=== PATIENT | male | born 1965 | race Caucasian/White ===

== ENCOUNTER 2018-09-15 07:21 | Outpatient (CLI) | payer BC, SELFPAY ==
[2018-09-15 07:47] LABS: HCT 45.9 % (40.0-50.0); HGB 15.3 g/dL (13.5-17.5); Mean Corp. HGB Concentration 33.3 g/dL (32.0-36.0); Mean Corpuscular Hemoglobin 29.4 pg (27.0-33.0); Mean Corpuscular Volume 88.3 fL (80-95); Platelet Count 265 x1000/uL (130-400); RBC Distribution Width 13.3 % (11.8-14.1); White Blood Cell Count 5.59 k/cumm (4.4-10.8)
[2018-09-15 08:51] LABS: ALT 27 U/L (12-78); AST 18 U/L (15-37); Albumin 3.6 g/dL (3.4-5.0); Alkaline Phosphatase 66 U/L (46-116); Anion Gap 9.7 mmol/L (3-11); BUN 20 mg/dL (7-18); Bilirubin, Total 0.4 mg/dL (0.2-1.0); C-Reactive Protein 0.14 mg/dL (0.0-0.3); CO2 27.3 mmol/L (21.0-32.0); CREATININE 1.25 mg/dL (0.70-1.30); Calcium 8.9 mg/dL (8.5-10.1); Chloride 105 mmol/L (98-107); Glucose 107 mg/dL (70-100); Potassium 4.6 mmol/L (3.5-5.1); Sodium 142 mmol/L (136-145); TSH 1.32 uIU/mL (0.358-3.74); Total Protein 6.6 g/dL (6.4-8.2)
[2018-09-16 10:21] LABS: PSA, Screening 1.2 ng/ml (0-3.5)
== END 2018-09-15 07:41 ==
PROVIDERS: PCP Emergency Medicine; Visit Provider Emergency Medicine
DX: E03.9 Hypothyroidism, unspecified (principal); F32.9 Major depressive disorder, single episode, unspecified; Z12.5 Encounter for screening for malignant neoplasm of prostate
CPT/HCPCS: 36415; 80053; 84153; 85027; 84443; 86140

== ENCOUNTER 2018-12-09 12:12 | Outpatient (CLI) | payer BC, SELFPAY ==
--- NOTE | 2018-12-09 19:08 | W.PREOPHP ---
Date of service: 12/09/18 Assessment and Plan (1) Dupuytren's contracture of left hand: Current visit: Yes Status: Chronic Partial palmar fasciectomy left hand. Details of surgery were discussed with patient as well as risks and pertinent anatomy. All questions were answered. History of Present Illness Chief Complaint: Flexion contracture of his left ring finger Narrative: Rosendo a 52-year-old male who comes in today for preop visit of the Dupuytren's contracture of his left hand. He has a flexion contracture of his left ring finger that has been slowly developing over the last several years. He has noticed also a cord with nodules developing in the palm of his hand. The fingers started to get into his way when he is trying to put his hand in his pocket, and also is affecting his bowling. Because the contracture is actually developed to the point where he is unable to fully extend his finger to the tabletop with his dorsum of his hand on the table, Dr. Cordon does suggest a nodular palmar fasciectomy which the patient agrees to and is anxious to proceed with. Pertinent Surgical Information Patient denies history of hypertension, CVA, [place], angina, asthma, COPD, renal or liver disorders, hepatitis, bleeding disorders, diabetes, immune or thyroid disorders. No complications from anesthesia. Review of Systems Constitutional Denies fever(s) ENT Denies dizziness and Denies sore throat Cardiovascular Denies chest pain, Denies palpitations and Denies dyspnea Respiratory Denies cough and Denies dyspnea Gastrointestinal Denies abdominal pain, Denies melena, Denies hematochezia, Denies diarrhea, Denies nausea and Denies vomiting Genitourinary Denies hematuria and Denies dysuria Neurologic Denies dizziness Endocrine Denies palpitations PFSH Medical History BPH associated with nocturia (Chronic) Kidney stone (Chronic) Depression (Chronic) Family history of heart disease (Chronic) Surgical History H/O wisdom tooth extraction (Chronic) Social History Smoking/Tobacco Use Status: Former Tobacco Use Drug use: Never Do you feel safe at home: Yes Do you feel safe in your relationship?: Yes Meds Home Medications Medication Instructions Recorded Confirmed Type ibuprofen 200 mg tablet 200 - 300 mg PO QID PRN tab 09/23/18 12/09/18 History bupropion HCl XL 150 mg 24 hr 150 mg PO QAM #60 tab 10/29/18 12/09/18 Rx tablet, extended release Allergies Allergy/AdvReac Type Severity Reaction Status Date / Time No Known Allergies Allergy Unverified 12/09/18 11:52 Exam HENIN Head: normocephalic and atraumatic General nose exam: no nasal discharge Throat: uvula midline and no uvular edema Other: soft palate rises symmetrically, no erythema Eyes Conjunctivae: conjunctivae normal Sclera: sclerae normal Pupils: PERRL Resp Effort & Inspection: normal respiratory effort Auscultation: clear to auscultation bilaterally and no wheezes Cardio Rate: regular rate Rhythm: regular rhythm Heart Sounds: S1 normal, S2 normal and no murmurs GI Palpation: soft, no hepatosplenomegaly and nontender Auscultation: normal bowel sounds
== END 2018-12-09 12:32 ==
PROVIDERS: PCP Emergency Medicine; Visit Provider Orthopaedic Surgery
DX: M72.0 Palmar fascial fibromatosis [Dupuytren] (principal); Z01.818 Encounter for other preprocedural examination
CPT/HCPCS: NC

== ENCOUNTER 2018-12-15 11:18 | Day surgery (SDC) | payer BC, SELFPAY ==
[2018-12-09 12:26] VITALS: BP 131/81; PULSE 86; RESP 18; TEMP 36.6; O2SAT 96
[2018-12-15 11:35] VITALS: BP 121/91; PULSE 78; RESP 16; TEMP 36.5; O2SAT 97
[2018-12-15] MEDS: Lactated Ringers 1,000 ML 80 ML IV (12:24)
[2018-12-15] MEDS: ceFAZolin 1 GM/50 ML BAG IVPB (12:40)
--- NOTE | 2018-12-15 13:53 | PDOC.DSDIS_ITS ---
Discharge Plan Disposition Patient Disposition: HOME Condition: Good Discharge Details Reason For Visit: Partial palmar fasciectomy L Attending Provider: Saqib Cordon Primary Care Provider: Charly Tyson Home Meds and New Rx's Prescriptions: New hydrocodone-acetaminophen 5-325 mg tablet 1 tab PO Q6H PRN (Reason: pain) Qty: 7 RF: 0 Continued ibuprofen 200 mg tablet 200 - 300 mg PO QID PRNRF: 0 polyethylene glycol 3350 17 gram/dose powder 238 g PO ONCE Qty: 238 RF: 0 bisacodyl [Dulcolax (bisacodyl)] 5 mg tablet,delayed release (DR/EC) 5 mg PO ONCE Qty: 4 RF: 0 bupropion HCl 150 mg tablet extended release 24 hr 150 mg PO QAM Qty: 60 RF: 6 Discharge Instructions Additional Instructions: Elevate L hand above heart level as much as possible for next 48 hours. Keep dressings intact and dry until return. Return to 's office in one week. Bend and straighten fingers L hand 10 times/hour when awake to prevent swelling. Take tylenol or advil for mild pain. Take hydrocodone, if needed, for breakthru pain. Stand Alone Forms: DSU Post op Instructions, Mariusz Shin (DSU) Referrals: Saqib Cordon MD [ [facility] STAFF PHYSICIAN] - (f/u in one week.) Activity:: Activity as Tolerated Remove Dressings/Wound Care:: Do Not Remove Shower/Bathe:: Cover Diet:: As Tolerated Discharge Orders Discharge Orders: Discharge Order (Routine); Ordered 12/15/18 Ordered By: Saqib Cordon DS: Diagnosis Discharge Diagnosis (1) Dupuytren's contracture of left hand: Status: Chronic
[2018-12-15] MEDS: Ketorolac 15 MG/ML VIAL IVP (14:16)
[2018-12-15] MEDS: Normal Saline Flush 10 ML SYR IV (14:17)
[2018-12-15 14:20] VITALS: BP 121/91; PULSE 78; RESP 16; TEMP 36.5; O2SAT 97
--- NOTE | 2018-12-16 08:58 | ROE_ITS ---
REPORT OF OPERATIVE PROCEDURE DATE OF SERVICE December 15, 2018 PREOPERATIVE DIAGNOSIS Nodular palmar fascitis left. POSTOPERATIVE DIAGNOSIS Nodular palmar fascitis left. PROCEDURE Partial palmar fasciectomy left. ANESTHESIA IV regional, Jessee Cabrera CRNA SURGEON Saqib Cordon M.D. INDICATIONS This is a 53-year-old white male who has nodular palmar fascitis on the left. He has reached the in t where he has developed a 30-degree contracture of the MP joint of his left ring finger. He has a ve ry firm single cord starting at the distal edge of the volar carpal ligament and extending just acros s the MP joint of the ring finger. Because of the flexion contracture that has developed, partial pal mar fasciectomy was recommended at this time before the contracture has extended to the PIP joint. E xcision of the palmar fascia would be simpler and with less complications. The patient wished to proc eed as soon as possible. The risks and complications to the procedure were explained to the patient in detail preoperatively. PROCEDURE The patient was taken to the Operating Room on 12/15/2018. He was placed supine on the Operating Tabl e. An IV regional anesthetic was administered to the left upper extremity. The left hand, wrist and forearm were prepped and draped free in the usual sterile fashion. A disposable lead hand was then a pplied to keep the fingers extended during the procedure. A zigzag Ellen-type incision was made beg inning approximately mid proximal phalanx of the left ring finger and carried across the flexion crea ses to the distal edge of the volar carpal ligament. Sharp dissection was used to create skin flaps a nd expose the diseased palmar fascia. I then started proximally incising the palmar fascia. Traction was applied to the end of the palmar fascia and dissection proceeded from proximal to distal in the p qasim. I identified the digital nerves on either side of the ring finger metacarpal, carefully preserve d and protected these nerves as the dissection carried distally across the proximal flexion crease of the finger. The diseased palmar fascia was excised in one piece. I then released the proximal ulises of the ring finger. I was able to excise the diseased palmar fascia without perforating the skin. Th e wound was irrigated with saline solution. The wound margins were infiltrated with 0.5% Marcaine wit h epinephrine solution and the skin edges were then loosely approximated with interrupted #4-0 Nylon sutures. The wound was dressed with Xeroform gauze, fluff gauze, 4x4s between the fingers and the pal m, an ABD pad and wrapped with a 4-inch cling bandage. I then wrapped it with an Jacek bandage. I did n ot use a splint. The patient's IV regional anesthesia was reversed without complications. He was dis charged to the Recovery Room in good condition. The patient was discharged home from the Day Surgery Unit when fully recovered from his IV regional a nesthesia. He was given instructions to try to elevate his left hand above heart level as much as po ssible for the next 24 hours. He was encouraged to flex and extend the fingers of his left hand 10 t imes an hour while awake to prevent swelling. He is to keep the dressings dry and intact until he fol lows up in my office in one week for a dressing change. He will take Tylenol or ibuprofen for mild pa in. He is given a prescription for breakthrough pain of hydrocodone with APAP 5/325, 1 tablet every 6 hours as needed.
== END 2018-12-15 14:42 | disposition home or self-care (01) ==
PROVIDERS: PCP Emergency Medicine; Visit Provider Orthopaedic Surgery
PROC: (CPT 26123; principal; 2018-12-15 13:00)
DX: M72.0 Palmar fascial fibromatosis [Dupuytren] (principal)
CPT/HCPCS: 26123; J0690; J1885; J2250

== ENCOUNTER 2018-12-27 12:00 | Day surgery (SDC) | payer BC, SELFPAY ==
--- NOTE | 2018-12-27 07:12 | W.COLOREPORT ---
Date of service: 12/27/18 Time of Service: 13:44 Colonoscopy Report Date of procedure: 12/27/18 Pre-op diagnosis general: Colon Cancer screening Post-op diagnosis procedure note: other (Ascending colon polyp) Procedure: Colonoscopy with polypectomy by cold snare Surgeon: Aleah Pagan Anesthesia proc note operative: other (General/ ASA 2/Eladio Elliott, JOANN) Estimated blood loss (mL): 3 Pathology: other (Ascending colon polyp) Complications: None Disposition: same day Indications: Mr. Monet is a pleasant 53-year-old gentleman who was seen in the office for his first screening colonoscopy. There is no family history of colon cancer. Risks, benefits and complications have been reviewed. Complications include but are not limited to bleeding, pain, perforation, missed small lesion/polyp, sore throat, aspiration and adverse reaction to the medications. Questions were entertained and answered to their satisfaction and they wished to proceed. No guarantees were given or implied. Prep: Miralax/Dulcolax Procedure Start Time: 13:44 Procedure End Time: 14:09 Retraction Time: 18 minutes Findings: One sessile polyp in the ascending colon Procedure Description: After informed consent was obtained the patient was taken to the procedure room and placed in a left decubitous position. Monitors were applied and a time out was done. The patients name, date of , procedure, allergies to medications and metal in their body was reviewed. The patient was then sedated. Once sedated and comfortable a rectal exam was done. External exam was normal. Internal exam revealed a normal sphincter tone and no palpable masses. The prostate felt smooth. The scope was then introduced and retro-flexed. No internal hemorrhoids were identified. The scope was then advanced to the cecum without difficulty. The TI and appendiceal orifice were identified. The prep was good. The scope was then slowly retracted over 18 minutes back into the rectum. Polyps were removed in the ascending colon with a cold snare. The scope was removed and the patient was woken up and taken back to Same day surgery in stable condition. The patient tolerated the procedure well and there were no immediate complications. Follow up: The patient should follow up in 3-5 years unless they develop changes in bowel habits or other new gastrointestinal complaints.
--- NOTE | 2018-12-27 07:13 | W.PM.DSUDISC ---
Discharge Plan Disposition Patient Disposition: HOME Condition: Good Discharge Details Reason For Visit: Colon Cancer Screening Attending Provider: Aleah Pagan Primary Care Provider: Charly Tyson Home Meds and New Rx's Prescriptions: Continued ibuprofen 200 mg tablet 200 - 300 mg PO QID PRNRF: 0 bupropion HCl 150 mg tablet extended release 24 hr 150 mg PO QAM Qty: 60 RF: 6 hydrocodone-acetaminophen 5-325 mg tablet 1 tab PO Q6H PRN (Reason: pain) Qty: 7 RF: 0 Discontinued polyethylene glycol 3350 17 gram/dose powder 238 g PO ONCE Qty: 238 RF: 0 bisacodyl [Dulcolax (bisacodyl)] 5 mg tablet,delayed release (DR/EC) 5 mg PO ONCE Qty: 4 RF: 0 Discharge Instructions Instructions: Colonoscopy (DC), Colorectal Polyps (DC) Additional Instructions: Findings: 1 polyp Follow up: 3-5 years Please call if you develop: fevers >101.5 Nausea or Vomiting Abdominal pain that is not transient DAY SURGERY UNIT POST COLONOSCOPY INSTRUCTIONS 1. Because there will be medication in your system for the next 24 hours, you may feel a little sleepy. Your coordination will be affected. Therefore: a. Do not drive or operate dangerous equipment for 24 hours. b. Do not drink alcohol beverages for 24 hours (not even beer). c. Plan to go home and rest for the day. 2. Generally there are no restrictions on your activity after a day or so has gone by, but you may feel a bit fatigued for a few days. 3 After you arrive home you may have a light meal and return to a normal diet as you can tolerate it without feeling sick to your stomach. 4. After surgery, you may feel pain or discomfort. This should be only transient, but if it persists please contact your doctor. 5. If there are any questions regarding the findings of your procedure, please feel free to contact your doctor. 6. If you are unable to contact your doctor with a problem, contact the hospital at [phone]. 7. Continue all your regular medications unless directed otherwise. I understand the above instructions and have no questions. Signature of Patient or Responsible Adult Escort Date/Time Name of Responsible Adult Escort Signature of Nurse Date/Time Activity:: Activity as Tolerated Diet:: As Tolerated Discharge Orders Discharge Orders: Discharge Order (Routine); Ordered 12/27/18 Ordered By: Aleah Pagan DS: Diagnosis Discharge Diagnosis (1) S/P colonoscopy: Status: Acute (2) Colorectal polyp detected on colonoscopy: Status: Acute
[2018-12-27 12:21] VITALS: BP 127/88; PULSE 72; RESP 16; TEMP 35.9; O2SAT 99
[2018-12-27 12:24] VITALS: BP 127/88; PULSE 72; RESP 16; TEMP 35.9; O2SAT 99
[2018-12-27] MEDS: Lactated Ringers 1,000 ML 80 ML IV (12:35)
--- NOTE | 2018-12-27 13:50 | BOWEL_PTH ---
PATIENT: Rosendo Monet LOC: [facility] U#:[id number] AGE/SX: 53/M ROOM: RE12/27/[address]: Aleah Pagan MD : [id number] BED: DIS: 12/27/2018 SPEC #: [id number] RECD: 12/27/18 17:29 STATUS: TAYLOR REQ #: [id number] JESSE: 12/27/18 13:[address]: Aleah Pagan DEPT: Surgical Specimen RECD BY: Indy Lynch ENTERED: 12/27/18 17:29 SP TYPE: Bowel OTHR DR: Charly Tyson DO Tissues: 1 - BIOPSY BOWEL Procedures: GROSS AND MICRO LEVEL 4 Comments: [id number]
[2018-12-27 14:48] VITALS: BP 128/84; PULSE 74; RESP 16; TEMP 35.2; O2SAT 97
== END 2018-12-27 15:14 | disposition home or self-care (01) ==
LOC: SUR 12:00
PROVIDERS: PCP Emergency Medicine; Visit Provider Surgery
PROC: 0DJD8ZZ Inspection of Lower Intestinal Tract, Via Natural or Artificial Opening Endoscopic (ICD-10-PCS; CPT 45378; principal; 2018-12-27 13:00)
DX: Z12.11 Encounter for screening for malignant neoplasm of colon (principal); D12.2 Benign neoplasm of ascending colon
CPT/HCPCS: 45385; 88305

== ENCOUNTER 2020-02-17 08:01 | Outpatient (CLI) | payer BC, SELFPAY ==
[2020-02-18 02:46] LABS: COVID-19 RT-PCR UVMMC Result Negative (Negative)
== END 2020-02-17 08:21 ==
PROVIDERS: PCP Emergency Medicine; Visit Provider Orthopaedic Surgery
DX: Z11.59 Encounter for screening for other viral diseases (principal); Z01.818 Encounter for other preprocedural examination
CPT/HCPCS: U0003

== ENCOUNTER 2020-02-20 10:57 | Day surgery (SDC) | payer BC, SELFPAY ==
[2020-02-20 11:06] VITALS: BP 120/83; PULSE 84; RESP 16; TEMP 36.1; O2SAT 95
[2020-02-20] MEDS: Lactated Ringers 1,000 ML 80 ML IV (11:47)
[2020-02-20] MEDS: ceFAZolin 1 GM/50 ML BAG IVPB (13:26)
--- NOTE | 2020-02-20 14:25 | W.PM.DSUDISC ---
Discharge Plan Disposition Patient Disposition: HOME Condition: Good Discharge Details Reason For Visit: PARTIAL PALMAR FASCIECTOMY R Attending Provider: Saqib Cordon Primary Care Provider: Charly Tyson Home Meds and New Rx's Prescriptions: New hydrocodone-acetaminophen 5-325 mg tablet 1 tab PO Q4H PRN (Reason: pain) Qty: 10 RF: 0 Continued ibuprofen 200 mg tablet 200 - 300 mg PO QID PRNRF: 0 bupropion HCl 150 mg tablet extended release 24 hr 150 mg PO QAM Qty: 90 RF: 3 Discharge Instructions Additional Instructions: Try to elevate R hand above heart level as much as possible for next 48 hours. Bend and straighten fingers R hand 10 times/hour when awake to prevent swelling. Keep dressings and splint dry and in place until return. Return to 's office in one week. Take ibuprofen for mild pain. Take hydrocodone for breakthrough pain, if needed. Referrals: Saqib Cordon MD [ [facility] STAFF PHYSICIAN] - (f/u in one week.) Equipment/Supplies: Splint Activity:: Activity as Tolerated Remove Dressings/Wound Care:: Do Not Remove Shower/Bathe:: Cover Diet:: As Tolerated Discharge Orders Discharge Orders: Discharge Order (Routine); Ordered 02/20/20 Ordered By: Saqib Cordon DS: Diagnosis Discharge Diagnosis (1) Dupuytren's contracture of right hand: Status: Acute
[2020-02-20 14:53] VITALS: BP 119/82; PULSE 61; RESP 16; TEMP 36.1; O2SAT 94
--- NOTE | 2020-02-22 13:47 | W.PM.OP ---
Date of service: 02/20/20 Time of Service: 15:00 Operative Note Operative Note DATE OF PROCEDURE: 02/20/20 PRE-OP DIAGNOSIS: Nodular palmar fasciitis right POST-OP DIAGNOSIS: same PROCEDURE: Partial palmar fasciectomy right, application of short arm fiberglass splint. SURGEON: Saqib Cordon ANESTHESIA: GETA and regional ESTIMATED BLOOD LOSS: 0 PATHOLOGY: none sent TOURNIQUET TIME: 45 COMPLICATIONS: None Patient was transported to: PACU Patient's condition: stable Indications: This is a 54-year-old white male with nodular palmar fasciitis on the right. He presented for partial palmar fasciectomy when he developed a contracture of his MP joint of his right ring finger. He has previously undergone a successful partial palmar fasciectomy on the left side over a year ago. He had been instructed not to wait until the contracture extended to the PIP joint, because this would make the surgery more difficult with increased complications. Procedure Description: Patient was taken the operating room on 02/20/2020 and placed in a supine operative table. IV regional anesthesia was administered to the right upper extremity. Once good anesthesia was obtained the right hand wrist and forearm were prepped and draped free in usual sterile fashion. A Ellen zigzag type incision was made beginning over the proximal phalanx of the right ring finger and extending proximally to the distal edge of the volar carpal ligament. Sharp dissection was used to create skin flaps and expose the diseased palmar fascia. Once the flaps of fully developed a began excision of the longitudinal cord of the contracted fascia at the distal edge of all carpal ligament. Dissection then proceeded distally across the proximal flexion crease of the ring finger. Care was taken to protect the digital nerves and vessels during dissection. I carried the palmar fascia excision over to the middle finger metacarpal radially into the little finger metacarpal ulnarly. Release of the A1 ulises of the ring finger was also performed. At this point the wound was irrigated with saline solution. The wound margins were over 2.5% Marcaine with epinephrine solution. Skin edges were loosely approximated interrupted 4 nylon sutures. Wound was dressed with Xeroform gauze. Fluff gauze 4 x 4's were placed between the fingers and into the palm. This was wrapped and ABD pad was placed in the palm and this was wrapped with a 4 inch Kerlix bandage. I then fashioned a volar fiberglass short arm splint that was secured with a 3 inch Jacek bandage. The IV regional anesthesia was reversed without complication. No breakthrough bleeding was noted through the dressings. The patient was then discharged to the recovery room in good condition. Patient was discharged home from day surgery unit when fully recovered from the IV regional anesthesia. Patient is given instructions try to elevate his right hand above heart level as much as possible for the next 48 hours. He is encouraged to wiggle his fingers 10 times an hour while awake to prevent stiffness and swelling. He is to keep his dressing splint intact and dry until follow-up in [address] Cordon. May take Tylenol ibuprofen for mild pain. He is given a prescription for breakthrough pain of hydrocodone with APAP 12/31/2024 1 tablet a 6 hours as needed.
== END 2020-02-20 15:27 | disposition home or self-care (01) ==
PROVIDERS: PCP Emergency Medicine; Visit Provider Orthopaedic Surgery
PROC: (CPT 26123; principal; 2020-02-20 13:30)
DX: M72.0 Palmar fascial fibromatosis [Dupuytren] (principal)
CPT/HCPCS: 26123; J0690; J1885; J2250; J3010

== ENCOUNTER 2022-04-28 04:11 | Outpatient (CLI) | payer BC, SELFPAY ==
[2022-04-28 08:47] LABS: Calculated LDL 116 mg/dL (<100); Cholesterol 183 mg/dL (<200); HDL Cholesterol 47 mg/dL (40-60); Triglyceride 100 mg/dL (<150)
== END 2022-04-28 04:12 | disposition home or self-care (01) ==
PROVIDERS: PCP Nurse Practitioner; Visit Provider Nurse Practitioner
DX: Z13.6 Encounter for screening for cardiovascular disorders (principal); Z13.1 Encounter for screening for diabetes mellitus
CPT/HCPCS: 36415; 80061; 83036

== ENCOUNTER → 2022-05-22 02:54 | Outpatient (CLI) | payer BC, SELFPAY ==
--- NOTE | 2022-05-22 06:30 | DI.MRI_ITS ---
Exam(s) MR IAC BRAIN WO/W EXAM: MR IAC BRAIN WO/W CLINICAL HISTORY: Asymmetrical hearing loss,h90.3. TECHNIQUE: Multiplanar multisequence MRI of the brain and internal auditory canals was performed. CONTRAST MATERIAL: IV Contrast: 15 mL of Magnevist contrast administered. COMPARISON: No exams were available for comparison FINDINGS: VENTRICLES AND EXTRA AXIAL SPACES: Normal in size and morphology for the patient's age. HEMORRHAGE: None. CEREBRAL PARENCHYMA: No focus of restricted diffusion to suggest acute infarct. No space-occupying le lacey identified. MIDLINE SHIFT: None. BRAINSTEM/CEREBELLUM: Normal. CALVARIUM: Normal. ENHANCEMENT: No suspicious enhancement identified. VISUALIZED PARANASAL SINUSES/MASTOIDS: Clear. IAC/CP ANGLE: The internal auditory canals are within normal limits. The cerebellar pontine angles ar e unremarkable. No enhancing lesions are seen. OTHER FINDINGS: None. IMPRESSION: Unremarkable MRI of the brain and internal auditory canals. DATA REPOSITORY:
[2022-05-22] MEDS: Normal Saline Flush 10 ML SYR IVP (09:02)
== END ==
PROVIDERS: PCP Nurse Practitioner; Visit Provider Registered Nurse Maternal Newborn
DX: H90.3 Sensorineural hearing loss, bilateral (principal)
CPT/HCPCS: 70553

== ENCOUNTER 2024-01-11 06:11 | Day surgery (SDC) | payer BC, SELFPAY ==
--- NOTE | 2024-01-10 19:16 | PDOC.DSDIS_ITS ---
Date of service: 01/11/24 Time of Service: 07:45 Discharge Plan Disposition Patient Disposition: Home Condition: Good Discharge Details Reason For Visit: screening colonoscopy Attending Provider: Oliver Tim Primary Care Provider: Jennifer Mendoza Home Meds and New Rx's Prescriptions: Continued bupropion HCl 150 mg tablet extended release 24 hr 150 mg PO QAM Qty: 90 3RF Discontinued bisacodyl [Dulcolax (bisacodyl)] 5 mg tablet,delayed release (DR/EC) 5 mg PO ONCE Qty: 4 0RF Rx Instructions: Take per colonoscopy instructions provided by ordering providers office polyethylene glycol 3350 17 gram/dose powder 17 g PO ONCE Qty: 238 0RF Rx Instructions: Take per colonoscopy instructions provided by ordering providers office Discharge Instructions Instructions: Colorectal Polyps (GEN) Additional Instructions: Rosendo, we were able to complete your colonoscopy today without any difficulty. Your prep was excellent, and I could see everything just fine. I did find 1 p olyp, which I removed today. As you previously experienced, the polyp will be sent off for testing, and once I know the nature of the polyp, the office will be in touch with recommendations for the timing of your next colonoscopy. If you have any questions in the meantime, please do not hesitate to call or ask at any point. 1. If tolerated, consume a soft, low fiber diet for 1-2 days. 2[address] Do not drive, drink alcohol, operate machinery, make critical decisions, or do activities that require coordination or balance for 24 hours. 3. Because air was put into your colon during the procedure, expelling air from your rectum (passing gas or farting) is normal. 4. You may not have a bowel movement for 1-3 days because of the colonoscopy prep. This is normal. 5. Go directly to the emergency room if you notice any of the following: Develop chills (warm to touch), or if you have a thermometer and your temperature is above 101 Difficulty breathing or difficultly swallowing Persistent vomiting Severe abdominal pain, other than gas cramps Severe chest pain Black, tarry stools Any bleeding ? exceeding one tablespoon 6. Call your physician if the site where your intravenous was started becomes red, swollen, painful, and warm to touch. 7. Your physician has reviewed your pre-procedure medications. Please continue to take those medications as previously ordered. You will be given specific information/education regarding any changes to your medications before leaving. Activity:: Activity as Tolerated Diet:: As Tolerated Discharge Orders Discharge Orders: Discharge Order (Routine); Ordered 01/10/24 Ordered By: Oliver Tim DS: Diagnosis Discharge Diagnosis (1) Encounter for screening colonoscopy: Status: Acute Asessment and Plan: Follow-up on polypectomy result
--- NOTE | 2024-01-10 19:17 | W.COLOREPORT ---
Date of service: 01/11/24 Time of Service: 07:46 Colonoscopy Report Date of procedure: 01/11/24 Pre-op diagnosis general: screening colonoscopy Post-op diagnosis procedure note: other (Colon polyp) Procedure: colonoscopy with polypectomy Surgeon: Oliver Tim Anesthesia Type: General:No Airway Estimated blood loss (mL): 3 Pathology: other (0.5 cm pedunculated polyp at 30 cm) Complications: None Disposition: same day Indications: Rosendo is a 58 year old man with a history of tubular adenoma who needs a screening colonoscopy Prep: Miralax/Dulcolax Procedure Start Time: 07:23 Procedure End Time: 07:36 Retraction Time: 7 Findings: 0.5 cm pedunculated polyp at 30 cm Procedure Description: After the induction of monitored anesthetic care, and with the patient in left lateral decubitus position, I began by performing an external anorectal exam.? Perineum and skin were normal, as was the anal verge.? There was no evidence of external hemorrhoids.? Next, I performed a digital rectal exam.? I did not appreciate any abnormal findings.? Next, I advanced a colonoscope into the rectal vault.? I performed retroflexion.? This was normal.? Using insufflation, I then advanced the colonoscope beyond the rectal folds and into the sigmoid colon before advancing towards the cecum.? The scope was noted to be in the cecum by identification of the ileocecal valve and appendiceal orifice.? I then began withdrawing the colonoscope using repeated irrigation as necessary for full evaluation of the colonic mucosa. Around 30 cm from the anal verge I identified a 0.5 cm polyp. ?It appeared pedunculated in character. ?I was able to remove this with a cold snare polypectomy. ?I examined the site, and there was minimal bleeding. ?Once this was completed, I continued to withdraw the scope and examine the remainder of the colonic mucosa.?Once the scope was withdrawn to the level of the rectum, great care was taken to examine portions of the rectal folds.? Finally, the scope was withdrawn and the patient was brought to the same-day surgery recovery unit as the anesthetic wore off. ?The findings and instructions were shared with the patient prior to discharge. Angier Bowel Prep Angier Bowel Prep Right Colon: 3 Left Colon: 3 Transverse Colon: 3 Total Score: 9
[2024-01-11 06:33] VITALS: BP 117/72; PULSE 61; RESP 16; TEMP 36.4; O2SAT 100
[2024-01-11] MEDS: Lactated Ringers 1,000 ML 80 ML IV (06:36)
--- NOTE | 2024-01-11 06:58 | W.ANESPRE ---
General Info Date of Service Date Performed: 01/11/24 Height: 5 ft 8 in Weight: 84.822 kg Body Mass Index (BMI): 28.4 Surgical Procedure: Operation Date: 01/11/24 07:35 Proposed Procedure Side Surgeon p Tete Tim MD Meds Allergies and Home Medications Allergies Allergy/AdvReac Type Severity Reaction Status Date / Time No Known Allergies Allergy Verified 01/11/24 06:21 Home Medication Medication Instructions Recorded bupropion HCl 150 mg 24 hr tablet, 150 mg PO QAM #90 tabs 12/21/23 extended release Current Visit Medications: Current Medications Generic Name Dose Route Start Last Admin Trade Name Freq PRN Reason Stop Dose Admin Hyoscyamine Sulfate 0.125 mg 01/10/24 19:18 Hyoscyamine 0.125 Mg Sl/Oral/Chew SL 02/09/24 19:17 DIRECTED PRN Ringer's Solution 1,000 mls @ 80 mls/hr 01/11/24 06:00 01/11/24 06:36 IV 02/07/24 23:59 80 mls/hr INFUSION GERARDO Administration IV Miscellaneous Supplies 1 each 01/11/24 06:00 Iv Access IV 02/07/24 23:59 DIRECTED GERARDO Ondansetron HCl 4 mg 01/10/24 19:18 Ondansetron 4 Mg/2 Ml Vial IVP 02/09/24 19:17 Q4H PRN PRN Nausea / Vomiting Sodium Chloride 0 ml 01/11/24 06:00 Normal Saline Flush 10 Ml Syr IV 02/07/24 23:59 PRN PRN Sodium Chloride 0 ml 01/11/24 06:00 Normal Saline 10 Ml Vial IJ 02/07/24 23:59 DIRECTED PRN Sterile Water 0 ml 01/11/24 06:00 Water,Injection,Sterile 10 Ml Vial IJ 02/07/24 23:59 DIRECTED PRN PFSH Active Problems Active Problems: Problem Status Onset Code Encounter for screening colonoscopy Z12.11 Asymmetrical sensorineural hearing loss H90.3 Decreased hearing H91.90 Onychomycosis B35.1 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, 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 Depression F32.9 Medical History Medical History Dupuytren's contracture of right hand DOS: 02/20/20 Colorectal polyp detected on colonoscopy (~12/27/18) History of gastroscopy Palmar fasciitis Palmar fasciitis s/p palmar fasciectomy Dupuytren's contracture of left hand 2019 repair Family history of heart disease Surgical History Surgical History H/O wisdom tooth extraction Tobacco Smoking/Tobacco Use Status: Former Tobacco Use Smokeless tobacco user: chewing tobacco Passive smoking exposure: No Second hand exposure: Yes Alcohol Alcohol Intake: current Alcohol intake frequency: a few times a week Alcohol type: beer Substance Use Substance use: Socially Substance use type: marijuana Vital Signs and Lab Results Vital Signs Most Recent Vital Signs in EMR: Most Recent Vital Signs Temp Pulse Resp BP Pulse Ox 36.4 C L 61 16 117/72 100 01/11/24 06:33 01/11/24 06:33 01/11/24 06:33 01/11/24 06:33 01/11/24 06:33 Lab Results Blood Type / Crossmatch: No Data to Display Complete Blood Count: No Data to Display Complete Metabolic Panel: No Data to Display Liver Function Panel: No Data to Display Coagulation Panel: No Data to Display Cardiac Panel: No Data to Display Arterial Blood Gas: No Data to Display Venous Blood Gas: No Data to Display Pancreas Panel: No Data to Display Thyroid Panel: No Data to Display Infectious Disease: No Data to Display Blood Cultures: No Data to Display Toxicology Panel: No Data to Display Anesthesia Assessment and Plan Anesthesia History Personal History: No History of Anesthesia Complications Family History: No Family History of Anesthesia Complications Exercise Tolerance Exercise Tolerance: Metabolic Equivalents>4 Pertinent Negatives Pertinent Negatives: No Symptoms of GERD, No Major Cardiovascular Symptoms or Complaints, No Major Pulmonary Symptoms or Complaints and No History of CVA/TIA Cardiac & Pulmonary Exam Cardiac Exam: Normal S1/S2 Heart Sounds Pulmonary Exam: Clear Bilateral Breath Sounds Implantable Cardiac Device Does patient have a Pacemaker or an ICD?: No Airway Exam Known Difficult Airway: No Mallampati Class: 2 Mouth Opening: Normal (> 3cm) Thyromental Distance: Greater than 3 cm Neck Range of Motion: Full ROM Neck Circumference: Normal Teeth Condition: Normal Dentition ASA Classification ASA Score: ASA 2 Emergency Case?: No NPO Status NPO Status: NPO Clears >2 hours, Solids >8 hours Anesthesia Plan Resuscitation Status: Full Code Anesthesia Technique: General Anesthesia Airway Planned: Natural Airway Monitors Used: Standard Monitors
[2024-01-11 07:01] VITALS: BMI 28.4
--- NOTE | 2024-01-11 07:34 | BOWEL_PTH ---
PATIENT: Rosendo Monet LOC: [facility] U#:[id number] AGE/SX: 58/M ROOM: RE01/11/[address]: Oliver Tim MD : 1965 BED: DIS: 01/11/2024 SPEC #: [id number] RECD: 01/11/24 12:52 STATUS: TAYLOR REMackenzie #: [id number] JESSE: 01/11/24 07:[address]: Oliver Tim DEPT: Surgical Specimen RECD BY: Indy Lynch ENTERED: 01/11/24 12:53 SP TYPE: Bowel OTHR DR: Jennifer Mendoza, CHRISTY Tissues: 1 - BIOPSY BOWEL Procedures: GROSS AND MICRO LEVEL 4 Comments: [id number]
[2024-01-11 07:42] VITALS: BP 112/84; PULSE 79; RESP 16; TEMP 36.4; O2SAT 97
--- NOTE | 2024-01-11 07:53 | W.ANESPOSTOP ---
Postoperative Evaluation Date, Time and Location Date Performed: 01/11/24 Time Performed: 07:53 Patient Location: Day Surgery Unit Vital Signs Most Recent Imported Vital Signs: Most Recent Vital Signs Temp Pulse Resp BP Pulse Ox 36.4 C L 79 16 112/84 97 01/11/24 07:42 01/11/24 07:42 01/11/24 07:42 01/11/24 07:42 01/11/24 07:42 Pain Score Most Recent Pain Score: Most Recent Pain Score Pain Level 0 01/11/24 07:42 Assessment Mental Status: Awake (Alert & Oriented to Patient Baseline) Airway and Respiratory Function: Patent airway with normal (patient baseline) respiratory exam Cardiovascular Function: Hemodynamically Stable Hydration Status: Adequately Hydrated Nausea & Vomiting: No Nausea or Vomiting Pain: Pt. Denies Any Pain Peripheral Nerve Block: Patient did not receive a nerve block
[2024-01-11 08:06] VITALS: BP 128/85; PULSE 65; RESP 16; TEMP 36.3; O2SAT 98
== END 2024-01-11 08:24 | disposition home or self-care (01) ==
LOC: SUR 06:12
PROVIDERS: PCP Nurse Practitioner Family; Visit Provider Surgery
PROC: 0DJD8ZZ Inspection of Lower Intestinal Tract, Via Natural or Artificial Opening Endoscopic (ICD-10-PCS; CPT 45378; principal; 2024-01-11 07:30)
DX: Z12.11 Encounter for screening for malignant neoplasm of colon (principal); D12.5 Benign neoplasm of sigmoid colon
CPT/HCPCS: 45385; 88305; J2001; J2704

== ENCOUNTER 2024-04-20 02:27 | Outpatient (CLI) | payer BC, SELFPAY ==
--- OUTSIDE RECORDS SUMMARY | 2024-04-20 02:46 | XMS_ITS | Encounter Summary ---
Author Organization [facility] Address [address] [place] [address] Care Team Providers Care Tax Commissioner Name Role Phone Charly Tyson Primary Care Provider +1- [phone] Encounter Details Date Type Department Care Team (Late st Contact Info) Description 01/11/2024 Lab Requisition [facility] Pathology & Laboratory Medicine - [facility] [address] [place] [address] Oliver Tim MD [address] [place] [address], [address] [place], [place] [id number] Encounter for screening for malignant neoplasm of colon Social History Tobacco Use Types Packs/Day Years Used Date Smoking Tobacco: Never Assessed Interpersonal Safety Answer Date Record ed Physically Hurt Never 04/01/2020 Verbally Threaten Not on file 04/01/2020 Sex and Gender Information Value Date Recorded Sex Assigned at Not on file Gender Identity Not on file Sexual Orientation Not on file documented as of this encounter Plan of Treatment Not on file documented as of this encounter Procedures Procedure Name Priority Date/Time Associated Diagnosis Comments SURGICAL PATHOLOGY Today 01/11/2024 7:34 EDT Encounter for screening for malignant neoplasm of colon documented in this encounter Results * SURGICAL PATHOLOGY (01/11/2024 7:34 EDT) Note to Patient The following pathology results have been interpreted by your pathologist and may be available to you before your health provider has had the opportunity to review them. Please allow time for your provider to receive these results and explore management options, if applicable. 01/12/2024 9:57 EDT [facility] Final Diagnosis A. COLON, 30 CMS, POLYP, BIOPSY: - Tubular adenoma. 01/12/2024 9:57 [facility] Attestation By the signature below, the attending physician certifies that they have 1) personally conducted a gross and/or microscopic examination of the described specimen(s), and/or personally interpreted the results of laboratory testing of the described specimen(s), and 2) personally rendered or confirmed the above diagnosis. 01/12/2024 9:57 [facility] at 0957 Clinical History Screening colonoscopy; hx of polyps 01/12/2024 9:57 EDT [facility] Gross Description A. Received in formalin labelled with proper patient identification (initials H, S) and polyp at 30 cm is a finnegan-pink polyp (1.0 x 0.7 x 0.4 cm). Sectioned and entirely submitted in A1. [place] EDWARDS(ASCP) 01/11/2024 17:36 01/12/2024 9:57 T [facility] Performing Lab [facility] 01/12/2024 9:57 [facility] Scanned Images 01/12/2024 9:57 [facility] Tissue COLON STRUCTURE / Unknown 01/11/2024 7:34 EDT 01/11/2024 16:59 EDT Oliver Tim MD PATHOLOGY ORDERABLES [facility] [address] [place], [place] [id number] documented in this encounter Visit Diagnoses Diagnosis Encounter for screening for malignant neoplasm of colon Special screening for malignant neoplasms, colon documented in this encounter Care Teams Tax Commissioner Relationship Specialty Start Date End Date Charly Tyson DO [address] [place] [address] [place] [address] PCP - General 12/29/18 documented as of this encounter
--- OUTSIDE RECORDS SUMMARY | 2024-04-20 02:46 | XMS_ITS | Referral Summary ---
Author Organization [facility] Address [address] [place] [address] Care Team Providers Care Piece Meat Trimmer Name Role Phone Charly Tyson DO Primary Care Provider +1- [phone] Social History Tobacco Use Types Packs/Day Years Used Date Smoking Tobacco: Never Assessed Interpersonal Safety Answer Date Record ed Physically Hurt Never 04/01/2020 Verbally Threaten Not on file 04/01/2020 Sex and Gender Information Value Date Recorded Sex Assigned at Not on file Gender Identity Not on file Sexual Orientation Not on file Plan of Treatment Not on file Care Teams Piece Meat Trimmer Relationship Specialty Start Date End Date Charly Tyson, [address] [place] [address] PCP - General 12/29/18
--- OUTSIDE RECORDS SUMMARY | 2024-04-20 02:46 | XMS_ITS | Clinical Summary ---
Author Organization [facility] Address [address] [place] [address] Care Team Providers Care Living Coach Name Role Phone Charly Tyson DO Primary Care Provider +1- [phone] Social History Tobacco Use Types Packs/Day Years Used Date Smoking Tobacco: Never Assessed Interpersonal Safety Answer Date Record ed Physically Hurt Never 04/01/2020 Verbally Threaten Not on file 04/01/2020 Sex and Gender Information Value Date Recorded Sex Assigned at Not on file Gender Identity Not on file Sexual Orientation Not on file Plan of Treatment Health Maintenance Due Date Last Done Comments Hepatitis C Screen 1965 Hepatitis B Vaccine (1 of 3 - 19+ 3-dose series) 12/15 COVID-19 Vaccine (2022-24 season) 2023 Care Teams Living Coach Relationship Specialty Start Date End Date Charly Tyson, [address] [place] [address] PCP - General 12/29/18
--- OUTSIDE RECORDS SUMMARY | 2024-04-20 02:46 | XMS_ITS | Encounter Summary ---
Author Organization [facility] Address [address] [place] [address] Care Team Providers Care Manufacturing Technician Name Role Phone Charly Tyson Primary Care Provider +1- [phone] Encounter Details Date Type Department Care Team (Late st Contact Info) Description 02/17/2020 Lab Requisition [facility] Pathology & Laboratory Medicine - [facility] [address] [place], [place] [address] Outr Resulting Lab, Provider Social History Tobacco Use Types Packs/Day Years Used Date Smoking Tobacco: Never Assessed Sex and Gender Information Value Date Recorded Sex Assigned at Not on file Gender Identity Not on file Sexual Orientation Not on file documented as of this encounter Plan of Treatment Not on file documented as of this encounter Procedures Procedure Name Priority Date/Time Associated Diagnosis Comments ZZCOVID-19 TEST [facility] LAB PCR Today 02/17/2020 10:31 EDT COVID-19 TESTING Routine 02/17/2020 10:3 1 EDT documented in this encounter Results * COVID-19 TEST [facility] PCR (02/17/2020 10:31 EDT) Swab ENTIRE NASOPHARYNX / Unknown 02/17/2020 10:31 EDT 02/17/2020 17:20 EDT Provider Outr Resulting Lab MICROBIOLOGY - GENERAL ORDERABLES [facility] [address] [place] [address] * COVID-19 TESTING (02/17/2020 10:31 EDT) COVID-19 rt-PCR Result Negative Negative 02/18/2020 2:41 EDT [facility] Comment: This test has not been FDA cleared or approved. This test has been authorized by FDA under an EUA for use by authorized laboratories. This test has been authorized only for detection of nucleic acid from 2019-nCoV, not for any other viruses or pathogens. This test is only authorized for the duration of the declaration that circumstances exist justifying the authorization of emergency use of in vitro diagnostic tests for detection and/or diagnosis of 2019-nCoV under section 564(b)(1) of Act, 21 U.S.C ?? 360bbb-3(b) (1), unless the authorization is terminated or revoked sooner. Negative results do not preclude 2019-nCoV infection and should not be used as the sole basis for treatment or other patient management decisions. Negative results must be combined with clinical observations, patient history, and epidemiological information. Performed on the SimpleTherapyher Fusion instrument Performing Lab [facility] 02/18/2020 2:41 EDT [facility] Swab 02/17/2020 10:3 1 EDT 02/17/2020 17:20 EDT Provider Outr Resulting Lab MICROBIOLOGY - GENERAL ORDERABLES [facility] [address] [place] [address] documented in this encounter Visit Diagnoses Not on filedocumented in this encounter Care Teams Manufacturing Technician Relationship Specialty Start Date End Date Charly Tyson DO [address] [place] [id number] PCP - General 12/29/18 documented as of this encounter
--- OUTSIDE RECORDS SUMMARY | 2024-04-20 02:46 | XMS_ITS | Encounter Summary ---
Author Organization [facility] Address [address] [place] [address] Care Team Providers Care Marketing Research Analyst Name Role Phone Rick Stark MD Primary Care Provider Unavailab le Encounter Details Date Type Department Care Team (Latest Contact Info) Description 12/27/2018 14:01 EDT - 12/27/2018 23:59 EDT Hospital Encounter [address] [address] Unknown, Provider, Discharge Disposition: Home or Self Care Social History Tobacco Use Types Packs/Day Years Used Date Smoking Tobacco: Never Assessed Sex and Gender Information Value Date Recorded Sex Assigned at Not on file Gender Identity Not on file Sexual Orientation Not on file documented as of this encounter Discharge Disposition Disposition Code Departure Means Destination Home or Self Senior Care documented in this encounter Plan of Treatment Not on file documented as of this encounter Visit Diagnoses Not on filedocumented in this encounter Care Teams Marketing Research Analyst Relationship Specialty Start Date End Date Rick Stark MD PCP - General 07/10/15 12/28/18 documented as of this encounter
--- OUTSIDE RECORDS SUMMARY | 2024-04-20 02:46 | XMS_ITS | Encounter Summary ---
Author Organization [facility] Address [address] [place] [address] Care Team Providers Care Certified Fraud Examiner Name Role Phone Unavailable Primary Care Provider Unavailabl e Encounter Details Date Type Department Care Team (Late st Contact Info) Description 08/14/2004 Results Only [facility] - [facility] [address] [place] [address] Marybel Lamb MD [address] [place] [phone] Social History Tobacco Use Types Packs/Day Years Used Date Smoking Tobacco: Never Assessed Sex and Gender Information Value Date Recorded Sex Assigned at Not on file Gender Identity Not on file Sexual Orientation Not on file documented as of this encounter Plan of Treatment Not on file documented as of this encounter Procedures Procedure Name Priority Date/Time Associated Diagnosis Comments SURGICAL PATHOLOGY Routine 08/14/2004 0:00 EST documented in this encounter Results * SURGICAL PATHOLOGY (08/14/2004 0:00 EST) Pathology Report: SURGICAL PATHOLOGY REPORT Reports generated via electronic interface contain original data; however they are lacking the format of the original report. Caution should be taken when reading/interpretin g unformatted reports. Name: ? ROSENDO MONET ? Accession #: ? [id number] ? : ? 1965 (Age: 38) ??M ? Collect Date: ? 08/14/2004 ? Location: ? [facility] ? Receive Date: ? 08/14/2004 ? Provider: ROSY LAMB MD Copy to: MARYBEL MORALES MD ? Final Pathologic Diagnosis: ? Gastroesophageal junction, biopsy: 1. ?Predominantly squamous epithelium with reactive changes. 2. ?Small fragment of glandular mucosa with acute and chronic inflammation and reactive changes. 3. ?No intestinal metaplasia identified. ??See comment. Comment: ? The specimen consists predominantly of squamous epithelium with only a small amount of glandular epithelium identified. ??The glandular epithelium shows chronic inflammation and reactive changes. ??This case was reviewed at intradepartmental consultation conference. (Dr. Monzon)/[facility] Document reviewed and electronically signed by: MORGAN MONZON MD Report ??Date: 08/16/2004 14:22 By the signature above, the attending physician certifies that he/she has personally conducted a gross and/or microscopic examination of the described specimens and rendered or confirmed the above diagnosis. Specimen(s) Received: ? BX GE junction Clinical History: ? Reflux, heartburn Gross Description: ? Received in Hollande's fixative labelled Tierney and bx GE junction is a fragment of finnegan-brown soft tissue which measures 0.4 x 0.2 x 0.1 cm. ??The specimen is entirely submitted in one cassette. ??(Dr. Dee-NANDO)/[facility] End of Report [facility] 08/14/2004 08/14/2004 15: 26 EST Marybel Lamb MD PATHOLOGY ORDERABLES [facility] [address] [place] [address] documented in this encounter Visit Diagnoses Not on filedocumented in this encounter
--- OUTSIDE RECORDS SUMMARY | 2024-04-20 02:46 | XMS_ITS | Encounter Summary ---
Author Organization [facility] Address [address] [place] [address] Care Team Providers Care Child Study Team Director Name Role Phone Rick Stark MD Primary Care Provider Unavailab le Encounter Details Date Type Department Care Team (Late st Contact Info) Description 12/27/2018 Results Only [facility] [phone] Rosie Simmons MD [facility] [place], [place] [id number] Social History Tobacco Use Types Packs/Day Years Used Date Smoking Tobacco: Never Assessed Sex and Gender Information Value Date Recorded Sex Assigned at Not on file Gender Identity Not on file Sexual Orientation Not on file documented as of this encounter Plan of Treatment Not on file documented as of this encounter Procedures Procedure Name Priority Date/Time Associated Diagnosis Comments SURGICAL PATHOLOGY Routine 12/27/2018 21 :24 EDT documented in this encounter Results * SURGICAL PATHOLOGY (12/27/2018 21:24 EDT) Pathology Report: SURGICAL PATHOLOGY REPORT Reports generated via electronic interface contain original data; however they are lacking the format of the original report. Caution should be taken when reading/interpret ing unformatted reports. Name: ? ROSENDO MONET ? Accession #: ? [id number] ? : ? 1965 (Age: 53) ??M ? Collect Date: ? 12/27/2018 ? Location: ? [facility] ? Receive Date: ? 12/27/2018 ? Provider: ROSIE SIMMONS MD Copy to: NASRIN CORRIGAN DO ? Final Pathologic Diagnosis: COLON, ASCENDING, POLYP, BIOPSIES: - Fragments of tubular adenoma. Document reviewed and electronically signed by: HOLLY WEST MD Report ??Date: 12/30/2018 14:53 By the signature above, the attending physician certifies that he/she has personally conducted a gross and/or microscopic examination of the described specimens and rendered or confirmed the above diagnosis. Specimen(s) Received: Ascending colon polyp Clinical History: Screening colonoscopy Gross Description: ? Received in formalin labelled with proper patient identification (initials H, S) and ascending colon polyp are six white tissues (0.1 x 0.1 x 0.1 cm to 0.2 x 0.1 x 0.1 cm). Entirely submitted in 1 and 2. Milton Montoya 12/28/2018 7:22 AM End of Report [facility] 12/27/2018 21:2 4 EDT 12/27/2018 21:24 EDT Rosie Simmons MD PATHOLOGY ORDERA JOELLE [facility] [address] [place] [address] documented in this encounter Visit Diagnoses Not on filedocumented in this encounter Care Teams Child Study Team Director Relationship Specialty Start Date End Date Rick Stark MD PCP - General 07/10/15 12/28/18 documented as of this encounter
[2024-04-20 07:36] LABS: HCT 46.6 % (40.0-50.0); HGB 15.5 g/dL (13.5-17.5); MCH 29.9 pg (27.0-33.0); MCHC 33.3 % (32.0-36.0); MCV 90 fL (80-95); MPV 10.1 fL (8.0-11.0); Platelet Count 262 10^3/uL (130-400); RBC 5.18 10^6/uL (4.36-5.78); RDW 12.6 % (11.8-14.1); RDW-SD 41.7 fL
[2024-04-20 08:03] LABS: Hemoglobin A1C 5.6 % (<5.7)
[2024-04-20 08:26] LABS: Anion Gap 8.2 mmol/L (3-11); BUN 19 mg/dL (7-18); CO2 28.8 mmol/L (21.0-32.0); CREATININE 1.3 mg/dL (0.70-1.30); Calcium 8.8 mg/dL (8.5-10.1); Calculated LDL 144 mg/dL (<100); Chloride 104 mmol/L (98-107); Cholesterol 204 mg/dL (<200); Estimated GFR 63.28 (mL/min/1.73m2); Glucose 105 mg/dL (74-106); HDL Cholesterol 46 mg/dL (40-60); Potassium 4.3 mmol/L (3.5-5.1); Sodium 141 mmol/L (136-145); Triglyceride 73 mg/dL (<150)
[2024-04-20 19:01] LABS: PSA, Screening 1.1 ng/mL (<=3.5)
== END 2024-04-20 02:28 | disposition home or self-care (01) ==
PROVIDERS: PCP Nurse Practitioner Family; Visit Provider Nurse Practitioner Family
DX: Z00.00 Encounter for general adult medical examination without abnormal findings (principal); N40.1 Benign prostatic hyperplasia with lower urinary tract symptoms; R35.1 Nocturia; F32.9 Major depressive disorder, single episode, unspecified
CPT/HCPCS: 36415; 80048; 80061; 84153; 85027; 83036

== ENCOUNTER 2025-04-25 03:06 | Outpatient (CLI) | payer OTHER, SELFPAY ==
[2025-04-25 16:46] LABS: ALT 26 U/L (16-63); AST 33 U/L (15-37); Albumin 3.7 g/dL (3.4-5.0); Alkaline Phosphatase 64 U/L (46-116); Anion Gap 10.8 mmol/L (3-11); BUN 22 mg/dL (7-18); Bilirubin, Total 0.8 mg/dL (0.2-1.0); CO2 27.2 mmol/L (21.0-32.0); Calcium 8.7 mg/dL (8.5-10.1); Calculated LDL 107 mg/dL (<100); Chloride 102 mmol/L (98-107); Cholesterol 155 mg/dL (<200); Estimated GFR 62.89 (mL/min/1.73m2); Glucose 73 mg/dL (74-106); HDL Cholesterol 41 mg/dL (>or=40); Potassium 4.5 mmol/L (3.5-5.1); Sodium 140 mmol/L (136-145); Total Protein 7.0 g/dL (6.4-8.2); Triglyceride 36 mg/dL (<150)
[2025-04-26 09:34] LABS: PSA, Screening 1.1 ng/mL (<=4.5)
== END 2025-04-25 03:07 | disposition home or self-care (01) ==
LOC: LBO 03:06
PROVIDERS: PCP Nurse Practitioner Family; Visit Provider Nurse Practitioner Family
DX: Z00.00 Encounter for general adult medical examination without abnormal findings (principal); F32.9 Major depressive disorder, single episode, unspecified; N40.1 Benign prostatic hyperplasia with lower urinary tract symptoms; R35.1 Nocturia; Z12.5 Encounter for screening for malignant neoplasm of prostate
CPT/HCPCS: 36415; 80053; 80061; 84153